=== PATIENT | female | born 1950 | race Two or more races ===

== ENCOUNTER 2018-08-19 12:28 | Outpatient (CLI) | payer OTHER ==
[~2018-08-19 12:28] MED LIST: JANUMET 50-1,1 UDTAB; JANUMET 50-501 UDTAB
== END 2018-08-19 12:29 | disposition home or self-care (01) ==
LOC: MAMO-SONO 12:28
DX: Z12.31 Encounter for screening mammogram for malignant neoplasm of breast (principal); Z87.898 Personal history of other specified conditions; N62 Hypertrophy of breast; M12.9 Arthropathy, unspecified; M19.90 Unspecified osteoarthritis, unspecified site

== ENCOUNTER 2018-08-19 16:43 | Outpatient (CLI) | payer OTHER | END 2018-08-19 16:50 | disposition home or self-care (01) | LOC: LAB 16:43 | DX: I10 Essential (primary) hypertension (principal); E11.9 Type 2 diabetes mellitus without complications; E03.8 Other specified hypothyroidism; E78.2 Mixed hyperlipidemia; M81.0 Age-related osteoporosis without current pathological fracture; K92.1 Melena; D64.0 Hereditary sideroblastic anemia ==

== ENCOUNTER → 2018-12-16 | Outpatient (CLI) | payer OTHER | END | disposition home or self-care (01) | LOC: NUCLEAR 10:13 | DX: M81.0 Age-related osteoporosis without current pathological fracture (principal) ==

== ENCOUNTER → 2023-07-17 | Emergency (ER) | payer OTHER ==
[~2023-07-17] VITALS: Ht 165.1 cm; Wt 74.8 kg
[~2023-07-17] MED LIST changes: +COZAAR100 MG PO; +GLIMEPIRIDE4 M1 PO; +METFORMIN HCL1000 MG; +NORVASC5 MG PO; +SIMVASTATIN10 MG PO
== END | disposition home or self-care (01) ==
LOC: ER 09:19
DX: M79.652 Pain in left thigh (principal); I10 Essential (primary) hypertension; E11.9 Type 2 diabetes mellitus without complications; Z79.84 Long term (current) use of oral hypoglycemic drugs
CPT/HCPCS: 72100; 96372; 99283; J1885